=== PATIENT | female | born 1955 | race Caucasian/White ===

== ENCOUNTER 2021-08-07 17:12 | Inpatient (IN) | payer MEDICARE, BC, SELFPAY ==
--- NOTE | ~2021-08-07 | XR_ITS ---
EXAMINATION: XR chest 2V Exam Date/Time: 08/07/2021 20:30 CDT HISTORY: SOB, WEAKNESS X 3 WEEKS, SMOKER, HX MYASTHENIA GRAVIS Comparison: None available. RESULT: Lines, tubes, and devices: Cholecystomy clips. Lungs and pleura: Unilateral left hemithorax opacification, or white out , right lung is clear. The trachea is slightly deviated to the right. Cardiomediastinal silhouette: Partially obscured cardiomediastinal silhouette, visualized portion no rmal. Other: No acute osseous or upper abdominal finding. IMPRESSION: Opacified left hemithorax, most likely due to a large left pleural effusion, although thoracic masses and occasionally diffuse consolidation can have a similar appearance. Reviewed, dictated and finalized at location K. IMPRESSION: Opacified left hemithorax, most likely due to a large left pleural effusion, al though thoracic masses and occasionally diffuse consolidation can have a simila r appearance.
--- NOTE | ~2021-08-07 | CT_ITS ---
EXAMINATION: CT diagnostic chest wo con DATE: 08/07/2021 22:41 INDICATION: left plueral effusion TECHNIQUE: Computed tomography (CT) of the chest was performed without intravenous contrast. Automate d exposure control and iterative reconstruction technique were employed. The dose-length product was 111.80 mGy-cm. COMPARISON: None. FINDINGS: CHEST: Thoracic aorta: No significant dilation or calcification. Lung parenchyma and airways: Mild emphysematous change in the right lung, with small inflammatory foc us/fibrosis in the right upper lobe. Left lobe collapse. Narrowing of the left main bronchus. Thoracic inlet, axillae and chest wall: Thoracic inlet and left supraclavicular lymphadenopathy. Mediastinum: Massive anterior mediastinal, pleural, or left hilar mass that abuts the great vessels, and appears to invade the left pleural space. Extensive bulky lymphadenopathy. Heart and pericardium: Normal heart size. Small volume pericardial effusion. Coronary artery calcifications: Mild. Pleura: Moderate volume left pleural effusion. Pleural masses are not excluded. Thoracic bones: No acute osseous finding in the chest. No concerning lytic or blastic lesions. Upper abdomen scattered subcentimeter upper abdominal lymph nodes. Innumerable liver hypodensities. IMPRESSION: Thoracic mass centered in the anterior mediastinum/april with bulky extensive mediastinal lymphadenopa thy, possibly pericardial, great vessel, and left pleural invasion, left main bronchus obstruction/in vasion with left lung collapse, and likely diffuse hepatic metastatic disease. Moderate left pleural effusion. Small pericardial effusion. Reviewed, dictated and finalized at location K. IMPRESSION: Thoracic mass centered in the anterior mediastinum/april with bulky extensive me diastinal lymphadenopathy, possibly pericardial, great vessel, and left pleural invasion, left main bronchus obstruction/invasion with left lung collapse, and likely diffuse hepatic metastatic disease. Moderate left pleural effusion. Sma ll pericardial effusion.
[2021-08-07 17:39] VITALS: BP 95/62; PULSE 115; RESP 16; TEMP 36.4; O2SAT 95
[2021-08-07 20:29] VITALS: BP 102/67; PULSE 79; RESP 22
[2021-08-07] MEDS: KETOROLAC 30 MG/ML VIAL (*BKC) IM (20:39)
[2021-08-07 20:45] VITALS: BP 101/60
--- NOTE | 2021-08-07 20:59 | ED.WEAKNESS ---
HPI - Weakness General Chief complaint: Weakness <Juan F Ann MD - Last Filed: 08/07/21 22:13> Stated complaint: back pain <Juan F Ann MD - Last Filed: 08/07/21 22:13> Time Seen by Provider: 08/07/21 20:11 <Juan F Ann MD - Last Filed: 08/07/21 22:13> Source: patient <Juan F Ann MD - Last Filed: 08/07/21 22:13> History of Present Illness HPI Narrative: Patient presents with back pain. Patient reports she has chronic back pain discontinued her oxycodone in March and has had increased pain since that time. Saw her primary care doctor today and was referred to the ER for further evaluation. Pain is achy, constant, worse with moving around, no radiation. She denies any trauma or focal numbness or weakness. She additionally reports a history of choking approximately 1 month ago when drinking tea and taking her medications. Ports ever since then she has not felt quite right. Reports she feels short of breath and she has a hoarse voice. Denies any fevers, cough, congestion, nausea, vomiting. <Juan F Ann MD - Last Filed: 08/07/21 22:13> Related Data Allergies/Adverse reactions: Allergies Allergy/AdvReac Type Severity Reaction Status Date / Time latex Allergy Blister Verified 08/07/21 16:09 <Juan F Ann MD - Last Filed: 08/07/21 22:13> Review of Systems Review of Systems: CONSTITUTIONAL: Denies fever, chills, or sweats. EYES: Denies visual changes, redness, or discharge. ENT: Denies rhinorrhea, congestion, or otalgia. CARDIOVASCULAR: Denies chest pain, palpitations, or edema. RESPIRATORY: Reports shortness of breath. GASTROINTESTINAL: Denies abdominal pain, nausea, vomiting, or diarrhea. GENITOURINARY: Denies dysuria or hematuria. SKIN: Denies rash or itching. MUSCULOSKELETAL: Denies joint pain, or myalgia. NEUROLOGIC: Denies headache, numbness, dizziness, or weakness. PSYCHIATRIC: Denies anxiety or depression. <Juan F Ann MD - Last Filed: 08/07/21 22:13> All systems reviewed & are unremarkable except as noted in HPI and below <Juan F Ann MD - Last Filed: 08/07/21 22:13> PMFSH Past Medical History Medical History: Medical History History of umbilical hernia Osteopenia <Juan F Ann MD - Last Filed: 08/07/21 22:13> Surgical History Surgical History: Surgical History History of total abdominal hysterectomy and bilateral salpingo-oophorectomy <Juan F Ann MD - Last Filed: 08/07/21 22:13> Social History Social History: Social History (Updated 08/07/21 @ 16:10 by Carolina Glover Chris) Smoking status: Current every day smoker Alcohol intake: never <Juan F Ann MD - Last Filed: 08/07/21 22:13> Exam Narrative: GENERAL: Well-appearing, well-nourished, and in no acute distress. HEAD: Normocephalic, atraumatic. EYES: PERRLA and EOMI. ENT: Nares clear, no rhinorrhea or epistaxis. Mucous membranes moist. NECK: Supple. No masses. No JVD CHEST: Clear to auscultation. No respiratory distress. Diminished aeration on the left HEART: Regular rate and rhythm. No murmur heard. Normal peripheral pulses. ABDOMEN: Soft, nontender, nondistended, normal active bowel sounds. BACK: Midline tenderness around T3 no step-offs no deformities EXTREMITIES: Normal range of motion. No edema. SKIN: Warm, dry, no rash. NEURO: No focal deficits. Alert and oriented x3. PSYCH: Normal mood and affect. <Juan F Ann MD - Last Filed: 08/07/21 22:13> Course Reevaluation(s) Reevaluation #1: Patient reports back pain is much improved patient updated on imaging findings additional work-up ordered as chest x-ray showed large pleural effusion <Juan F Ann MD - Last Filed: 08/07/21 22:13> Date: 08/07/21 <Juan F Ann MD - Last Filed: 08/07/21 22:13> Time: 21:00 <Laci
[2021-08-07 21:13] LABS: Hematocrit 39.1 % (37.0-47.0); Hemoglobin 12.6 g/dL (12.0-15.0); Mean Corpuscular HGB Conc 32.2 g/dl (32-36); Mean Corpuscular Hemoglobin 32.1 pg (26-34); Mean Corpuscular Volume 99.7 fl (80-100); Mean Platelet Volume 8.4 fl (7.4-10.4); Platelet Count Result 307 k/mm3 (150-375); Red Blood Count 3.92 M/mm3 (4.2-5.4); Red Cell Distribution Width 14.8 % (11.5-14.5); White Blood Count 26.3 K/mm3 (4.5-10.0)
[2021-08-07 21:26] LABS: Alanine Aminotransferase 48 U/L (6-35); Albumin Level 3.6 g/dL (3.5-5.1); Alkaline Phosphatase 216 U/L (38-126); Anion Gap 7 mmol/L (8-16); Aspartate Amino Transferase 80 U/L (14-36); Bilirubin,Total 0.5 mg/dL (0.2-1.3); Blood Urea Nitrogen 75 mg/dL (7-17); Calcium 8.7 mg/dL (8.4-10.2); Carbon Dioxide 31 mmol/L (22-30); Chloride 94 mmol/L (98-107); Estimated CRCL calculation 30 ml/min; Estimated Glomerular Filt Rate 38; Glucose 121 mg/dL (65-110); INR 1.1; Potassium 3.1 mmol/L (3.4-5.0); Prothrombin Time 13.3 Seconds (11.1-14.7); Sodium 132 mmol/L (137-145)
[2021-08-07 21:27] LABS: Partial Thromboplastin Time 25.3 SECONDS (22.3-36.8)
[2021-08-07 21:29] LABS: Eosinophils Absolute Manual 0.26 K/mm3 (0.02-0.5); Eosinophils Percent Manual 1 % (0-4); Lymphocytes Absolute Manual 2.89 K/mm3 (1.1-4.5); Monocytes Percent Manual 8 % (3-9); Neutrophils Percent Manual 80 % (46-73); Platelet Estimate Adequate (Adequate); Total Cells Counted 100
[2021-08-07 22:31] VITALS: BP 92/66
[2021-08-07] MEDS: SODIUM CHLORIDE 0.9% IV 1,000 ML 999 ML IV CONT (23:37)
[2021-08-08] VITALS (22 sets, daily range): BP systolic 88–116; BP diastolic 56–76; PULSE 99–114; RESP 15–22; TEMP 36.6–37.1; O2SAT 93–100; BMI 23.6
[2021-08-08] MEDS: POTASSIUM CHLORIDE 20 MEQ PACKET (FOR LIQUID) 40 MEQ PO (00:55)
[2021-08-08 01:06] LABS: SARS-CoV-2 RNA PCR Negative
--- NOTE | 2021-08-08 01:21 | PC.NURSE ---
Pt up to the bathroom once. Meal given. Pt ate 100%.
[2021-08-08] MEDS: ALBUTEROL SULFATE NEB 2.5 MG/3 ML INH 5 MG INHALATION ×3 (01:29→14:03)
[2021-08-08] MEDS: IPRATROPIUM BR 0.02% INH SOLN 0.5 MG/2.5 ML VIAL INHALATION ×3 (01:29→14:03)
[2021-08-08] MEDS: HYDROmorphone HCL INJ (*CRX) 1 MG/ML SYR 0.5 MG IV PUSH ×4 (02:03→17:18)
--- NOTE | 2021-08-08 02:24 | ADMGEN ---
This patient, Lidya Pringle, was admitted to IMU Room 206-01 on 08/08/21 at 0145. Patient/family oriented to hospital policies and general routines including ID bracelet, bed and alarms, visiting hours, pain management, procedures, bathroom and other care routines, personal items, smoking policy, room service/diet, and visiting hours. Information on how to activate the Rapid Response Team has been discussed. Patient/Family are encouraged to report perceived risks to care and to ask questions if they do not understand what they are told or what they should do.
[2021-08-08] MEDS: LACTATED RINGERS 1,000 ML 90 ML IV CONT ×2 (02:55→15:20)
[2021-08-08 08:34] LABS: Basophils Absolute Auto 0.1 K/mm3 (0.0-0.1); Basophils Percent Auto 0.4 % (0.2-1.2); Eosinophils Absolute Auto 0.2 K/mm3 (0-0.3); Eosinophils Percent Auto 0.7 % (0-4.4); Hematocrit 37.1 % (37.0-47.0); Hemoglobin 12.1 g/dL (12.0-15.0); Immature Granulocyte Absolute 0.89 K/mm3 (0.00-0.031); Immature Granulocyte Percent A 3.7 % (0-0.5); Lymphocytes Absolute Auto 2.79 K/mm3 (0.9-3.2); Lymphocytes Percent Auto 11.5 % (18.3-44.2); Mean Corpuscular HGB Conc 32.6 g/dl (32-36); Mean Corpuscular Hemoglobin 32.3 pg (26-34); Mean Corpuscular Volume 98.9 fl (80-100); Mean Platelet Volume 8.5 fl (7.4-10.4); Monocytes Absolute Auto 1.4 K/mm3 (0.1-0.6); Monocytes Percent Auto 5.9 % (2.6-8.5); Neutrophils Percent Auto 77.8 % (45.5-73.1); Platelet Count Result 315 k/mm3 (150-375); Red Blood Count 3.75 M/mm3 (4.2-5.4); Red Cell Distribution Width 14.8 % (11.5-14.5); White Blood Count 24.3 K/mm3 (4.5-10.0)
[2021-08-08 08:46] LABS: Magnesium 2.2 mg/dL (1.6-2.3)
--- NOTE | 2021-08-08 14:59 | PM.IMHP ---
H&P: HPI History of Present Illness Date/Time: 08/08/21 14:59 Chief Complaint: back pain Narrative: HPI-?Patient presents with back pain.? Patient reports she has chronic back pain discontinued her oxycodone in March and has had increased pain since that time.? Saw her primary care doctor today and was referred to the ER for further evaluation.? Pain is achy, constant, worse with moving around, no radiation.? She denies any trauma or focal numbness or weakness. She additionally reports a history of choking approximately 1 month ago when drinking tea and taking her medications.? Ports ever since then she has not felt quite right.? Reports she feels short of breath and? she has a hoarse voice.? Denies any fevers, cough, congestion, nausea, vomiting Interval history: CT scan of the chest showed Thoracic mass centered in the anterior mediastinum/april with bulky extensive mediastinal lymphadenopathy, possibly pericardial, great vessel, and left pleural invasion, left main bronchus obstruction/invasion with left lung collapse, and likely diffuse hepatic metastatic disease. Moderate left pleural effusion. Small pericardial effusion. ER physician spoke with the thoracic surgeon Dr. Walsh, and patient will be transferred to [facility] once a bed is available, patient is clinically stable will continue to monitor. Review of Systems Review of Systems: CONSTITUTIONAL: Denies fever, chills, or sweats. EYES: Denies visual changes, redness, or discharge. ENT: Denies rhinorrhea, congestion, or otalgia. CARDIOVASCULAR: Denies chest pain, palpitations, or edema. RESPIRATORY: Reports shortness of breath. GASTROINTESTINAL: Denies abdominal pain, nausea, vomiting, or diarrhea. GENITOURINARY: Denies dysuria or hematuria. SKIN: Denies rash or itching. MUSCULOSKELETAL: Denies joint pain, or myalgia. NEUROLOGIC: Denies headache, numbness, dizziness, or weakness. PSYCHIATRIC: Denies anxiety or depression. All systems reviewed & are unremarkable except as noted in HPI and below PMFSH Past Medical History Medical History (Updated 08/14/21 @ 16:34 by Jenaro Campos MD) History of umbilical hernia Osteopenia Small cell carcinoma Surgical History Surgical History History of total abdominal hysterectomy and bilateral salpingo-oophorectomy Social History Social History (Updated 08/07/21 @ 16:10 by Carolina Glover [facility]) Smoking packs per day: 0.5 Smoking cigarettes per day: 10.0 Years smoked: 30 Smoking pack-years: 15.00 Smoking status: Current every day smoker Tobacco type: cigarettes Alcohol intake: former Substance use: never Spiritual care concerns: No Meds Home Medications and Allergies Home Medications Medication Instructions Recorded Confirmed Type valacyclovir 500 mg tablet 500 mg PO Q12H #60 tabs 01/17/21 08/08/21 Rx (Valtrex) lisinopril 20 1 tablet PO DAILY #90 tabs 06/17/21 08/08/21 Rx mg-hydrochlorothiazide 12.5 mg tablet gabapentin 400 mg capsule 400 mg PO QHS #20 caps 06/28/21 08/08/21 Rx cyclobenzaprine 10 mg tablet 10 mg PO .q hs 08/08/21 08/08/21 History Allergies Allergy/AdvReac Type Severity Reaction Status Date / Time adhesive tape Allergy Blister Verified 08/08/21 02:32 azithromycin Allergy Confusion Verified 08/08/21 02:32 Iodinated Contrast Media Allergy Other Verified 08/08/21 02:32 latex Allergy Blister Verified 08/07/21 16:09 Vital Signs Vital Signs - 24 hr 08/07/21 17:39 08/07/21 20:29 08/07/21 20:45 Temperature 97.6 F Pulse Rate 115 H 79 Respiratory Rate 16 22 H Blood Pressure 95/62 L 102/67 101/60 Pulse Oximetry 95 Oxygen Delivery Room Air Room Air Oxygen Flow Rate Fraction of Inspired Oxygen 08/07/21 22:31 08/08/21 00:01 08/08/21 00:20 Temperature Pulse Rate 100 102 H Respiratory Rate 18 20 Blood Pressure 92/66 L 88/56 L 101/66 Pulse Oximetry 100 94 O
--- NOTE | 2021-08-08 15:41 | PC.NURSE ---
Zhang Arriaga, report provided to Merrick. CHRISTINA. Patient accepted to room 7452. Dr. Walsh accepting physician.
--- NOTE | 2021-09-02 09:14 | PM.TDS ---
Transfer Discharge Sum: Prov Provider Date of admission: 08/08/21 12:05 Primary care physician: Jenaro Campos MD Admitting clinician: Michelle Chavez MD DS: Admitting Diagnosis Discharge Date 08/08/21 Admitting Diagnosis Back pain DS: Discharge Diagnosis Discharge Diagnosis (1) Mass of mediastinum: Code(s): J98.59 - Other diseases of mediastinum, not elsewhere classified Status: Acute Assessment and Plan: HPI-?Patient presents with back pain.? Patient reports she has chronic back pain discontinued her oxycodone in March and has had increased pain since that time.? Saw her primary care doctor today and was referred to the ER for further evaluation.? Pain is achy, constant, worse with moving around, no radiation.? She denies any trauma or focal numbness or weakness. She additionally reports a history of choking approximately 1 month ago when drinking tea and taking her medications.? Ports ever since then she has not felt quite right.? Reports she feels short of breath and? she has a hoarse voice.? Denies any fevers, cough, congestion, nausea, vomiting Interval history: CT scan of the chest showed Thoracic mass centered in the anterior mediastinum/april with bulky extensive mediastinal lymphadenopathy, possibly pericardial, great vessel, and left pleural invasion, left main bronchus obstruction/invasion with left lung collapse, and likely diffuse hepatic metastatic disease. Moderate left pleural effusion. Small pericardial effusion. ER physician spoke with the thoracic surgeon Dr. Walsh, and patient will be transferred to [facility] once a bed is available, patient is clinically stable will continue to monitor. Transfer Discharge Sum: Med Medications Active and Home Medications: Home Medications valacyclovir 500 mg tablet (Valtrex) 500 mg PO Q12H #60 tabs 01/17/21 [Rx Confirmed 08/08/21] lisinopril 20 mg-hydrochlorothiazide 12.5 mg tablet 1 tablet PO DAILY #90 tabs 06/17/21 [Rx Confirmed 08/08/21] gabapentin 400 mg capsule 400 mg PO QHS #20 caps 06/28/21 [Rx Confirmed 08/08/21] cyclobenzaprine 10 mg tablet 10 mg PO .q hs 08/08/21 [History Confirmed 08/08/21] Transfer Discharge Sum: Hosp Hospital Course Hospital course: Lidya Pringle is a 66 year old female HPI-?Patient presents with back pain.? Patient reports she has chronic back pain discontinued her oxycodone in March and has had increased pain since that time.? Saw her primary care doctor today and was referred to the ER for further evaluation.? Pain is achy, constant, worse with moving around, no radiation.? She denies any trauma or focal numbness or weakness. She additionally reports a history of choking approximately 1 month ago when drinking tea and taking her medications.? Ports ever since then she has not felt quite right.? Reports she feels short of breath and? she has a hoarse voice.? Denies any fevers, cough, congestion, nausea, vomiting Interval history:? CT scan of the chest showed?Thoracic mass centered in the anterior mediastinum/april with bulky extensive mediastinal lymphadenopathy, possibly pericardial, great vessel, and left pleural invasion, left main bronchus obstruction/invasion with left lung collapse, and likely diffuse hepatic metastatic disease. Moderate left pleural effusion. Small pericardial effusion. ?ER physician spoke with the thoracic surgeon Dr. Walsh,? and patient will be transferred to [facility] once a bed is available, patient is clinically stable will continue to monitor. [facility] had room available and patient was transferred to [facility] Time Spent with Patient Time attestation: Total time spent providing and/or coordinating transfer services: Exam Narrative: Patient is comfortable, NAD HEENT: eyes are clear and none icteric LUNGS: normal respiratory effort Lower extremities: no edema SKIN: nonjaundiced Neuro: grossly intact.
== END 2021-08-08 17:30 | disposition short-term general hospital (02) | DRG 178 ==
LOC: ANHED 23:44 → ANHIMU 08-08 01:32
PROVIDERS: Emergency Medicine; Admitting Provider Internal Medicine; Emergency Provider Emergency Medicine; PCP Family Medicine; Visit Provider Family Medicine
DX: J98.59 Other diseases of mediastinum, not elsewhere classified (principal); J90 Pleural effusion, not elsewhere classified; I31.3 Pericardial effusion (noninflammatory); R53.1 Weakness; Z20.822 Contact with and (suspected) exposure to COVID-19; F17.210 Nicotine dependence, cigarettes, uncomplicated; Z79.899 Other long term (current) drug therapy; G89.29 Other chronic pain; M54.9 Dorsalgia, unspecified; M85.80 Other specified disorders of bone density and structure, unspecified site; Z85.9 Personal history of malignant neoplasm, unspecified
CPT/HCPCS: 36415; 71046; 71250; 80053; 83735; 85025; 85610; 85730; 87040; 94640; 96365; 96375; 96376; 99285; A9270; C9803; G0378; J1170; J1885; J2543; J7030; J7040; J7120; U0003; U0005